=== PATIENT | female | born 1985 | race Caucasian/White ===

== ENCOUNTER 2019-01-18 17:41 | Emergency (ER) | payer BC, OTHER ==
[2019-01-18] MEDS ORDERED: Ibuprofen TAB* 600 MG PO ONE (18:46)
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
[2019-01-18 19:12] VITALS: BP 120/80
== END 2019-01-18 19:03 | disposition home or self-care (01) ==
LOC: ED 17:41
DX: S20.212A Contusion of left front wall of thorax, initial encounter (principal); R07.81 Pleurodynia; W50.0XXA Accidental hit or strike by another person, initial encounter; Y92.9 Unspecified place or not applicable
CPT/HCPCS: 99282; A9270-GY